=== PATIENT | female | born 1945 | race Caucasian/White ===

== ENCOUNTER 2018-02-18 12:59 | Emergency (ER) | payer MEDICARE ==
[~2018-02-18] VITALS: Ht 165.1 cm; Wt 74.8 kg
[2018-02-18] MEDS ORDERED: SODIUM CHLORIDE 0.9% 1000ML 1,500 ML IV STA (13:37)
[2018-02-18] MEDS ORDERED: ACETAMINOPHEN 325 MG TAB PO STA (13:37)
[2018-02-18] MEDS ORDERED: NITROFURANTOIN MACROCRYSTALS 100 MG CAP PO ONE (13:45)
[2018-02-18 14:48] LABS: BASOPHILS # (AUTO) 0.1 (0.0-0.1); BASOPHILS % 0.3 % (0.0-1.0); HEMATOCRIT 38.4 % (34.2-44.1); HEMOGLOBIN 12.8 g/dL (12.0-16.0); LYMPHOCYTES % 4.9 % (18.0-39.1); MEAN CORPUSCULAR HEMOGLOBIN 26.4 pg (28-32); MEAN CORPUSCULAR HGB CONC 33.3 g/dL (31-35); MEAN CORPUSCULAR VOLUME 79.2 fL (81-99); MONOCYTES # (AUTO) 1.2 (0.2-0.8); MONOCYTES % 5.6 % (4.4-11.3); NEUTROPHILS # (AUTO) 18.5 (2.1-6.9); NEUTROPHILS % 87.3 % (38.7-80.0); PLATELET COUNT 573 x10e3/uL (140-360); RED BLOOD COUNT 4.85 x10e6/uL (3.6-5.1); RED CELL DISTRIBUTION WIDTH 15.6 % (11.7-14.4)
[2018-02-18 15:07] LABS: ALBUMIN 2.7 g/dL (3.5-5.0); ALBUMIN/GLOBULIN RATIO 0.5 (0.8-2.0); ANION GAP 18.4 mmol/L (8-16); CALCIUM 9.8 mg/dL (8.4-10.2); CREATININE, SERUM 1.29 mg/dL (0.57-1.11)
[2018-02-18 15:09] LABS: B-TYPE NATRIURETIC PEPTIDE2 45.6 pg/mL (0-100)
[2018-02-18 15:11] LABS: POTASSIUM 2.4 mmol/L (3.5-5.1)
[2018-02-18 15:17] LABS: CREATINE KINASE MB 0.3 ng/mL (0-5.0)
[2018-02-18] MEDS ORDERED: POTASSIUM CHLORIDE 10 MEQ TABCR PO ONE ×2 (15:30→17:30)
[2018-02-18 15:36] LABS: CLARITY,URINE SL CLOUDY (CLEAR); COLOR,URINE YELLOW (YELLOW)
[2018-02-18 15:37] LABS: BILIRUBIN,URINE NEGATIVE (NEGATIVE); KETONES,URINE NEGATIVE (NEGATIVE); LEUKOCYTE ESTERASE ,URINE 2+ (NEGATIVE); NITRITE,URINE POSITIVE (NEGATIVE); PROTEIN,URINE DIPSTICK 2+ (NEGATIVE); URINE UROBILINOGEN 0.2 mg/dL (0.2 - 1)
[2018-02-18 15:47] LABS: AMORPHOUS SEDIMENT,URINE MODERATE (FEW); BACTERIA,URINE MANY /HPF; RBC,URINE 21-50 /HPF (0-5); WBC,URINE (MAN) >50 /HPF (0-5)
[2018-02-18] MEDS ORDERED: LEVOFLOXACIN 500MG/D5W 100ML 100 ML IV STA (16:50)
[2018-02-18 18:17] VITALS: BP 150/77
== END 2018-02-18 18:42 | disposition other institution (70) ==
LOC: ER 12:59
DX: R30.0 Dysuria (principal); D72.829 Elevated white blood cell count, unspecified; N39.0 Urinary tract infection, site not specified; R41.82 Altered mental status, unspecified; R19.7 Diarrhea, unspecified; E87.6 Hypokalemia; N81.4 Uterovaginal prolapse, unspecified; R00.0 Tachycardia, unspecified; L89.301 Pressure ulcer of unspecified buttock, stage 1; E03.9 Hypothyroidism, unspecified; K21.9 Gastro-esophageal reflux disease without esophagitis; E78.5 Hyperlipidemia, unspecified
CPT/HCPCS: 36415; 80053; 81001; 82550; 82553; 83605; 83735; 83880; 84484; 85025; 87086; 87186; 93005; 99284; J1956; J7030